=== PATIENT | female | born 1935 | race Caucasian/White ===

== ENCOUNTER 2016-05-01 07:42 | Outpatient (CLI) | payer MEDICARE, OTHER ==
[~2016-05-01] VITALS: Ht 166.4 cm; Wt 75.5 kg
--- NOTE | ~2016-05-01 | HEMODYNAMI ---
PATIENT:TINY HERNANDEZ MEDICAL RECORD: [id number] : 37 LOCATION:[facility] ADMISSION DATE: 05/01/16 Generatedon:05/01/201610:48 Patient name: TINY HERNANDEZ Patient #: [id number] : 1935 Date of study: 05/01/2016 Page: Of Hemodynamic Procedure Report Patient Data Patient Demographics Procedure consent was obtained First Name: TINY Gender: Female Last Name: DAVID : 1935 Middle Initial: KASSANDRA Age: 80 year(s) Patient #: [id number] Race: SSN: [id number] Additional ID: [id number] Contact details [address]: [address] [place] [address] State: [place] City: [place] Zip code: [address] Past Medical History History of disease Date Diagnosis Comments CAD Allergies Allergen Reaction Date Comments Reported Percocet 05/01/2016 Other allergy 05/01/2016 PLAVIX Sulfa drugs 05/01/2016 Codeine 05/01/2016 Other allergy 05/01/2016 NEURONTIN Admission Admission Data Admission Date: 05/01/2016 Admission Time: 7:42 Height (in.): 65.5 BSA: 1.84 (m2) Height (cm.): 166.37 BMI: 27.2 (kg/m2) Weight (lbs.): 166 Weight (kg.): 75.3 Lab Results Lab Result Date: 05/01/2016 Lab Result Time: 0:00 Biochemistry Name Units Result Min Max BUN mg/dl 18 --(---*)-- 7 18 Creatinine mg/dl 1 --(--*-)-- 0.6 1.3 CBC Name Units Result Min Max Hemoglobin g/dl 12.9 -*(----)-- 13.5 17.5 Procedure Procedure Types Cath Procedure Diagnostic Procedure LHC LHC w/Coronaries w/Grafts FFR/IVUS Intra-Coronary IVUS Initial IVUS Additional x2 PCI Procedure Coronary Stent Initial x2 Procedure Description Procedure Date Procedure Date: 05/01/2016 Procedure Start Time: 10:11 Procedure End Time: 10:41 Procedure Staff Name Function Henri Adams MD Performing Physician Belkys Torres RT Scrub Chiquita Murphy RN Nurse Bruce Bhat RT Laborer Cutting Tool Maurice Park RT Monitor Indication Angina Procedure Data Cath Procedure Fluoroscopy Diagnostic fluoroscopy Total fluoroscopy Time: time: 11.3 min 11.3 min Diagnostic fluoroscopy Total fluoroscopy dose: dose: 1196 mGy 1196 mGy Contrast Material Contrast Material Type Amount (ml) Isovue 300 227 Entry Location Entry Primary Successful Side Size Upsize Upsize Entry Closure Succes sful Closure Location (Fr) 1 (Fr) 2 (Fr) Remarks Device Remarks Femoral Right 5 Fr 6 Fr Vascade artery Short Closure System Diagnostic catheters Device Type Used For End Catheter Placement Cordis 5Fr Pigtail LV Angiography Catheter (MP) Cordis 5Fr JL 4.0 Left Coronary Catheter (MP) Angiography Cordis 5Fr 3DRC Catheter SVG Angiography (MP) Procedure Complications No complications Procedure Medications Medication Administration Route Dosage Oxygen NC 2 l/min Heparin Flush Bag added to field 2 bags (1000units/500ml NS) Lidocaine 2% added to field 20 Benadryl I.V. 50 mg Versed I.V. 1 mg Fentanyl I.V. 50 mcg Heparin Bolus I.V. 5000 units Versed I.V. 1 mg Fentanyl I.V. 50 mcg Hemodynamics Rest BSA: 1.84 (m2) HGB: 12.9 (g/dl) O2 Consumption: Estimated: 168.83 (ml/min) O2 Co nsumption indexed: Estimated:91.76 (ml/min/m) Heart Rate: 74 (bpm) Snapshots Pre Cath Intra NCS Post Cath Vital Signs Time Heart Resp SPO2 NIBP (mmHg) Rhythm Pain Sedation Rate (ipm) (%) Status Level (bpm) 9:16:19 65 17 98 117/64(91) NSR 0 (11) 10(A) , No pain 9:20:27 68 17 95 129/71(90) NSR 0 (11) 10(A) , No pain 9:24:39 64 14 94 130/74(98) NSR 0 (11) 10(A) , No pain 9:28:53 61 15 96 122/67(88) NSR 0 (11) 10(A) , No pain 9:33:05 62 16 95 117/66(95) NSR 0 (11) 10(A) , No pain 9:37:17 61 16 96 115/61(86) NSR 0 (11) 10(A) , No pain 9:41:29 61 16 94 116/61(89) NSR 0 (11) 10(A) , No pain 9:45:39 62 15 94 111/63(78) NSR 0 (11) 10(A) , No pain 9:49:49 60 15 95 109/56(80) NSR 0 (11) 10(A) , No pain 9:54:00 60 15 94 106/54(86) NSR 0 (11) 10(A) , No pain 9:58:10 59 15 94 108/55(88) NSR 0 (11) 10(A) , No pain 10:02:20 60 15 94 107/58(80) NSR 0 (11) 10(A) , No pain 10:06:28 59 15 94 99/58(74) NSR 0 (11) 10(A) , No pain 10:10:34 59 15 94 98/56(73) NSR 0 (11) 10(A) , No pain 10:14:38 63 15 94 108/61(79) NSR 0 (11) 9(A) , No pain 10:18:45 63 15 97 125/65(95) NSR 0 (11) 9(A) , No pain 10:23:01 62 14 97 114/61(91) NSR 0 (11) 9(A) , No pain 10:27:11 59 15 96 114/63(82) NSR 0 (11) 9(A) , No pain 10:31:19 62 15 97 131/68(87) NSR 0 (11) 9(A) , No pain 10:35:35 59 14 96 131/64(94) NSR 0 (11) 9(A) , No pain 10:39:47 61 14 97 131/67(112) NSR 0 (11) 9(A) , No pain Medications Time Medication Route Dose Verified Delivered Reason Notes Effectiveness by by 9:15:26 Oxygen NC 2 Henri Chiquita Per physician l/min Bryan Murphy RN 9:15:36 Heparin Flush added 2 Henri Álvarez used for Bag to bags Bryan Adams MD procedure (1000units/500ml field NS) 9:15:42 Lidocaine 2% added 20ml Henri Henir used for to vial Bryan Adams MD procedure field 9:15:49 Benadryl I.V. 50 mg Henri Chiquita Per physician Bryan Murphy RN 10:09:21 Versed I.V. 1 mg Henri Chiquita for sedation Bryan Murphy RN 10:09:29 Fentanyl I.V. 50 Henri Chiquita for sedation mcg Bryan Murphy RN 10:13:06 Fentanyl I.V. 50 Henri Chiquita for sedation mcg Bryan Murphy RN 10:13:58 Versed I.V. 1 mg Henri Chiquita for sedation Bryan Murphy RN 10:18:28 Heparin Bolus I.V. 5000 Henri Khannaca for dose units Bryan Murphy RN anticoagulation verified with dr adams Procedure Log Time Note 8:50:22 Bruce Bhat RT(R) sent for patient. Start room use. 9:01:25 Informed consent obtained and on chart 9:08:58 Diagnostic Cath Status : Elective 9:09:18 Indication : Angina 9:09:33 Time tracking: Regular hours 9:09:38 Plan of Care:Hemodynamics will remain stable., Cardiac rhythm will remain stable., Comfort level will be maintained., Respiratory function will remain adequate., Patient/ family verbilizes understanding of procedure., Procedure tolerated without complication., Recovers from procedure without complications.. 9:09:45 Patient received from Outpatients to CCL 1 Alert and oriented. Tansferred to table in Supine position. 9:09:46 Warm blankets applied, and randi hugger turned on for patient comfort. 9:09:47 Correct patient and procedure confirmed by team. 9:09:47 ECG and BP/O2 sat monitors applied to patient. 9:15:17 Vital chart was started 9:15:26 Oxygen 2 l/min NC was given by Chiquita Murphy RN; Per physician; 9:15:36 Heparin Flush Bag (1000units/500ml NS) 2 bags added to field was given by Henri Adams MD; used for procedure; 9:15:42 Lidocaine 2% 20ml vial added to field was given by Henri Adams MD; used for procedure; 9:15:49 Benadryl 50 mg I.V. was given by Chiquita Murphy RN; Per physician; 9:18:56 Baseline sample Acquired. 9:18:58 Rhythm: sinus rhythm 9:19:00 Full Disclosure recording started 9:21:27 H&P Date Dictated: 04/30/2016 Within 30 days and on chart., H&P Addendum completed by physician on day of procedure. (MUST COMPLETE FOR ALL OUTPATIENTS). 9:21:28 Pre-procedure instructions explained to patient. 9:21:33 Pre-op teaching completed and patient verbalized understanding. 9:21:35 Family in waiting room. 9:21:36 Patient NPO since Midnight. 9:22:00 Patient allergic to Percocet 9:22:21 Patient allergic to Other allergyPLAVIX 9:22:25 Patient allergic to Sulfa drugs 9:22:31 Patient allergic to Codeine 9:22:54 Patient allergic to Other allergyNEURONTIN 9:22:57 Is the patient allergic to Iodine/contrast media? No. 9:23:01 Is patient on blood thinner?Yes 9:23:04 ACC The patient was administered the following blood thiners within the last 24 hours: ACCEffient 9:23:29 Patient diabetic? No. 9:23:31 ----Pre-sedation anethsthesia assessment.---- 9:23:33 Previous problem with sedation/anesthesia? No ? 9:23:34 Snore? No 9:23:36 Sleep apnea? No 9:23:37 Deviated septum? No 9:23:38 Opens mouth fully? Yes 9:23:39 Sticks out tongue? Yes 9:23:41 Airway obstruction? No ? 9:23:46 Dentures? Yes IN TIGHT 9:23:49 Pre procedure: right dorsailis pedis pulse 2+ Normal; easily identifiable; not easily obliterated 9:23:52 Patient pain scale 0/10 ?. 9:24:00 IV patent on arrival in left forearm with 0.9% NaCl at 10ml/hr. 9:24:34 Lab Result : BUN 18 mg/dl 9:24:34 Lab Result : Hemoglobin 12.9 g/dl 9::34 Lab Result : Creatinine 1 mg/dl 9::39 Lab results completed and on chart. 9::42 Right groin area was prepped with chlora-prep and draped in sterile fashion 9::43 Alarms reviewed by R. N. 9:: Sharps counted by scrub and verified by R.N. 9::42 Patient Height : 166.37 cm 9::45 Patient Weight : 75.3 kg 9:27:02 Use device set Femoral Dx 9:27:03 Acist Syringe opened to sterile field. 9:27:04 Bag Decanter opened to sterile field. 9:27:04 Cardinal Cath Pack opened to sterile field. 9:27:04 Terumo 5Fr Avery Sheath opened to sterile field. 9:27:05 St James 260cm J .035 wire opened to sterile field. 9:27:06 Acist Hand Control opened to sterile field. 9:27:06 Acist Manifold opened to sterile field. 9:27:07 Cordis Infinity 5Fr Multipack catheter opened to sterile field. 9:27:08 Tegaderm 4 x 4 opened to sterile field. 9:28:23 Zero performed for pressure channel P1 10:08:49 --------ALL STOP TIME OUT------ 10:08:49 Final Timeout: patient, procedure, and site verified with staff and physician. All members of the team are in agreement. 10:08:51 Right groin site verified by team. 10:09:09 Physical assessment completed. ASA score P 2 - A patient with mild systemic disease as per Henri Adams MD. 10:09:13 Sedation plan: IV Moderate Sedation Versed, Fentanyl 10::21 Versed 1 mg I.V. was given by Chiquita Murphy RN; for sedation; ::29 Fentanyl 50 mcg I.V. was given by Chiquita Murphy RN; for sedation; 10:11:00 Procedure started. 10:11:09 Local anesthetic to right femoral artery with Lidocaine 2% by Henri Adams MD.INITIAL ACCESS ONLY 10:11:16 A 5 Fr sheath was inserted into the Right Femoral artery 10:11:43 A Cordis 5Fr Pigtail Catheter (MP) was advanced over the wire and used for LV Angiography. 10:11:46 LV angiography performed. 10:11:56 LV gram done using VALERIO 10:12:12 Injector settings: Ml/sec: 5, Volume: 15, 10:12:43 EF : 55 % 10:12:44 Catheter removed. 10:12:49 A Cordis 5Fr JL 4.0 Catheter (MP) was advanced over the wire and used for Left Coronary Angiography. 10:13:06 Fentanyl 50 mcg I.V. was given by Chiquita Murphy RN; for sedation; 10:13:24 LCA angiography performed. 10:13:25 Catheter removed. 10:13:40 Terumo 6Fr Avery Sheath opened to sterile field. 10:13:40 Pint Pleaseisper J 300cm 0.014 guide wire opened to sterile field. 10:13:41 Merit BasixCompak Inflation Kit opened to sterile field. 10:13:58 Versed 1 mg I.V. was given by Chiquita Murphy RN; for sedation; 10:15:14 A Cordis 5Fr 3DRC Catheter (MP) was advanced over the wire and used for SVG Angiography. 10:16:01 SVG to LAD angiography performed. 10:16:08 RCA angiography performed. 10:16:58 Catheter removed. 10:17:28 Elm Mott Alpine Eagleye IVUS Catheter opened to sterile field. 10:18:16 Medtronic Launcher 6Fr 3DRC guide catheter opened to sterile field. 10:18:18 Cordis 6FR XBLAD 3.5 SH guide catheter opened to sterile field. 10:18:27 Sheath upsized to a 6 Fr Short. 10:18:28 Heparin Bolus 5000 units I.V. was given by Chiquita Murphy RN; for anticoagulation; dose verified with dr admas 10:18:33 6 Fr 3DRC guide catheter was inserted over the wire 10:18:36 Organically MaidISPER wire advanced. 10:18:40 FFR/IVUS 10:18:40 IVUS catheter advanced over wire. 10:18:42 IVUS pass to RCA lesion performed. 10:18:53 Procedure type changed to Cath procedure, Diagnostic procedure, LHC, LHC w/Coronaries w/Grafts, FFR/IVUS, Intra-Coronary IVUS Initial, IVUS Additional x2, PCI procedure, Coronary Stent Initial x2 10:21:39 IVUS catheter removed over wire. 10:22:17 Wire removed. 10:22:29 6 Fr XBLAD 3.5 SH guide catheter was inserted over the wire 10:23:03 WHISPER wire advanced. 10:23:09 FFR/IVUS 10:23:09 IVUS catheter advanced over wire. 10:23:11 IVUS pass to Circ lesion performed. 10:24:42 IVUS catheter removed over wire. 10:24:45 Wire removed. 10:24:52 WHISPER wire advanced. 10:24:55 FFR/IVUS 10:24:55 IVUS catheter advanced over wire. 10:24:56 IVUS pass to LAD lesion performed. 10:28:18 IVUS catheter removed over wire. 10:28:28 Wire removed. 10:28:36 WHISPER wire advanced. 10:29:36 ACC PCI Site: mCirc has 70% stenosis. 10:29:39 ACC Pre-intervention DIXON Flow is 3. 10:30:30 Inflation Number: 1 A Medtronic Resolute 3.5 X 15 stent was prepped and advanced across the Mid CX. The stent was deployed at 15 DALILA for 0:14 (min:sec). 10:30:44 Inflation number: 2 The stent balloon was then re-inflated across the Mid CX to 17 DALILA for 0:10 (min:sec). 10:32:31 Inflation number: 3 The stent balloon was then re-inflated across the Mid CX to 15 DALILA for 0:08 (min:sec). 10:33:03 Stent catheter was removed intact over wire. 10:33:04 ACC Post-intervention DIXON Flow is 3. 10:33:45 ACC PCI Site: LMCA has 80% stenosis. 10:33:47 ACC Pre-intervention DIXON Flow is 3. 10:35:44 The Medtronic Resolute 3.5 X 9 stent was advanced then removed because of failure to cross lesion 10:35:51 Wire removed. 10:35:54 Guide catheter removed. 10:36:05 Cordis 6FR XBLAD 3.5 guide catheter opened to sterile field. 10:36:12 6 Fr XBLAD 3.5 guide catheter was inserted over the wire 10:36:15 WHISPER wire advanced. 10:37:08 DID NOT GET A GOOD PICTURE WITH A SH CATH. 10:37:19 Inflation Number: 1 A Medtronic Resolute 3.5 X 9 stent was prepped and advanced across the LMCA. The stent was deployed at 17 DALILA for 0:10 (min:sec). 10:37:36 Inflation number: 2 The stent balloon was then re-inflated across the LMCA to 21 DALILA for 0:10 (min:sec). 10:37:57 Contrast amount:Isovue 300 227ml. 10:38:32 Stent catheter was removed intact over wire. 10:38:32 Wire removed. 10:38:33 Guide catheter removed. 10:38:43 Sheath removed intact; hemostasis achieved with Vascade Closure System to the Right Femoral artery. 10:38:47 Procedure ended.(Physican Out) 10:38:59 Fluoroscopy time 11.30 minutes. 10:39:04 Fluoroscopy dose: 1196 mGy 10:39:04 Flurop Dose total: 1196 10:39:05 Sharps counted by scrub and verified by R.N. 10:39:06 Insertion/operative site no bleeding no hematoma. 10:39:14 Post-op/insertion site Right Femoral artery dressed using a 4 x 4 and Tegaderm. 10:39:17 Post right femoral artery:stable 10:39:18 Post Procedure Pulses reassessed and unchanged 10:39:22 Post procedure rhythm: sinus rhythm 10:39:23 Post procedure instruction explained to patient.Patient verbalizes understanding. 10:39:51 Vascade 6/7 Fr Closure Device opened to sterile field. 10:40:48 Procedure and supply charges have been captured, reviewed, submitted and are correct. 10:40:52 Procedure Complication : No complications 10:40:55 Vital chart was stopped 10:40:55 See physician's report for complete and final results. 10:40:57 Report given to Post Procedure Room. 10:41:02 Patient transfered to Post Procedure Room with Stretcher. 10:41:04 Procedure ended. 10:41:04 Full Disclosure recording stopped 10:41:14 End room use (Document Last) Intervention Summary Intervention Notes Time ActionType Lesion and Equipment Action# Pressure Duration Attributes Used 10:30:30 Place stent Mid CX Medtronic 1 15 00:14 Resolute 3.5 X 15 stent 10:30:44 Reinflate Mid CX Medtronic 2 17 00:10 stent Resolute balloon 3.5 X 15 stent 10:32:31 Reinflate Mid CX Medtronic 3 15 00:08 stent Resolute balloon 3.5 X 15 stent 10:35:44 Discard Medtronic Stent Resolute 3.5 X 9 stent 10:37:19 Place stent LMCA Medtronic 1 17 00:10 Resolute 3.5 X 9 stent 10:37:36 Reinflate LMCA Medtronic 2 21 00:10 stent Resolute balloon 3.5 X 9 stent Device Usage Item Name Manufacture Quantity Catalog Hospital Part Current Minima l Lot# / Number Charge Number Stock Stock Serial# Code Acist Acist 1 [id number] [id number] 774036 953320 20 Syringe Medical Systems Inc Bag Microtek 1 2002S 334049 44359 335159 5 Decanter Medical Inc. Cardinal Cardinal 1 [id number] 273080 71413 711477 5 Cath Pack Health Terumo 5Fr Terumo 1 [id number] 139981 781432 676540 [address] [facility] 1 590364 208471 926408 908083 30 260cm J .035 wire Acist Hand Acist 1 02251 215258 562293 615733 5 Control Medical Systems Inc Acist Acist 1 13435 424495 389840 605537 5 Manifold Medical Systems Inc Cordis Cardinal 1 [id number] 668444 34913 782820 30 Infinity Health 5Fr Multipack catheter Tegaderm 4 3M 1 1626W 165811 030987 293447 5 x 4 Cordis 5Fr Cardinal 1 799352 5 Pigtail Health Catheter (MP) Cordis 5Fr Cardinal 1 170758 5 JL 4.0 Health Catheter (MP) Terumo 6Fr Terumo 1 [id number] 546007 210727 390175 40 Avery Sheath [facility] 1 [id number] 910521 865465 764155 5 Whisper J Vascular 300cm 0.014 guide wire Merit Merit 1 [id number] 186898 566428 576044 15 BasixCompak Medical Inflation Kit Cordis 5Fr Cardinal 1 092725 5 3DRC Health Catheter (MP) Darshana Gilliland 1 [id number] 180558 440300 512686 8 Alpine Eagleye IVUS Catheter Medtronic Medtronic 1 [id number] 344571 869958 775838 1 Launcher 6Fr 3DRC guide catheter Cordis 6FR Cardinal 1 [id number] 905525 237447 109389 3 XBLAD 3.5 Health SH guide catheter Medtronic Medtronic 1 [id number] 093542 382945 5 [id number] Resolute 3.5 X 15 stent Medtronic Medtronic 1 [id number] 893232 618283 3 [id number] Resolute 3.5 X 9 stent Cordis 6FR Cardinal 1 [id number] 317093 386585 145706 10 XBLAD 3.5 Health guide catheter Vascade 6/7 Cardiva 1 [id number] 604864 287960 364160 5 Fr Closure Medical, Device Inc. Signature Audit [place] Stage Time Signature Unsigned Intra-Procedure 05/01/2016 Maurice Park 10:48:01 AM RT(R) Signatures Monitor : Maurice Park RT Signature : Date : Time : [place] [id number] [place] [address]
[2016-05-01] MEDS ORDERED: BAYER CHEWABLE81 MG PO (08:32)
[2016-05-01] MEDS ORDERED: COREG6.25 MG PO (08:33)
[2016-05-01] MEDS ORDERED: CRESTOR20 MG PO (08:33)
[2016-05-01] MEDS ORDERED: CYMBALTA60 MG PO (08:33)
[2016-05-01] MEDS ORDERED: CYMBALTA30 MG PO (08:34)
[2016-05-01] MEDS ORDERED: EFFIENT10 MG PO (08:34)
[2016-05-01] MEDS ORDERED: DEXILANT60 MG PO (08:34)
[2016-05-01] MEDS ORDERED: ISOSORBIDE MONO60 M1 PO (08:35)
[2016-05-01] MEDS ORDERED: LINZESS145 MCG PO (08:36)
[2016-05-01] MEDS ORDERED: NITROSTAT0.4 MG SL (08:36)
[2016-05-01] MEDS ORDERED: SYNTHROID75 MCG PO (08:37)
[2016-05-01] MEDS ORDERED: ALTACE10 MG PO (08:37)
[2016-05-01] MEDS ORDERED: RANEXA1000 MG PO (08:37)
[2016-05-01] MEDS ORDERED: VITAMIN B-1000 MCG/M IM (08:38)
[2016-05-01] MEDS ORDERED: VITAMIN D31000 UNIT PO (08:39)
[2016-05-01] MEDS ORDERED: REFRESH TEARS15 ML EACH EYE (08:40)
[2016-05-01 08:42] VITALS: BP 112/55; Ht 166.4 cm; Wt 75.5 kg
[2016-05-01 08:51] LABS: BASOPHILS 0.2 % (0.0-2.0); EOSINOPHILS 0.8 % (0-7); HEMATOCRIT 39.4 % (36.0-48.0); HEMOGLOBIN 12.9 g/dL (12-16); IMMATURE GRANULOCYTES 0.8 % (0-5); LYMPHOCYTES 11.6 % (15-50); MCH 27.7 pg (26.0-34.0); MCHC 32.7 g/dL (31.0-37.0); MCV 84.5 fL (80.0-100.0); MONOCYTES 6.5 % (2-11); NEUTROPHILS 80.1 % (40-80); PLATELET COUNT 201 10x3/uL (130-400); RBC 4.66 10x6/uL (4.00-5.40); RDW 14.6 % (11.5-14.5); WBC 9.9 10x3/uL (4.8-10.8)
[2016-05-01 08:59] LABS: ANION GAP 12.9 mmol/L (8-16); CALCIUM 8.9 mg/dL (8.5-10.1); CARBON DIOXIDE 30.3 mmol/L (21.0-32.0); POTASSIUM - SERUM 4.2 mmol/L (3.5-5.1)
--- NOTE | 2016-05-01 11:05 | NUR ---
VSS HR NSR 64 CHEST PAIN DENIED BP 139/69. 6 FR VASCADE R/GROIN CDI NO BLEEDING NO HEMATOMA NOTED. INSTRUCTED PATIENT TO KEEP HEAD FLAT ON PILLOW WITH RLE STRAIGHT
--- NOTE | 2016-05-01 11:32 | NUR ---
VSS WITH CHEST PAIN DENIED. 6 FR VASCADE R/GROIN CDI NO BLEEDING NO HEAMTOMA NOTED. FAMILY AT SIDE WILL MONITOR
--- NOTE | 2016-05-01 12:00 | NUR ---
1200 6 FR VASCADE R/GROIN CDI NO BLEEDING NO HEMATOMA NOTED. INSTRUCTED PATIENT TO KEEP HEAD FLAT ON PILLOW WITH RLE STRAIGHT
--- NOTE | 2016-05-01 13:00 | NUR ---
1300 VSS WITH NO CHANGE IN ASSESSMENT WILL MONITOR
--- NOTE | 2016-05-01 14:32 | NUR ---
PIV REMOVED FROM LEFT ARM WITH DRESSING APPLIED. PATIENT DENIED CHEST PAIN WITH 6 FR VASCADE R/GROIN CDI NO BLEEDING NO HEMATOMA NOTED. UP TO GET DRESSED FOR DISCHARGE HOME WITH DAUGHTER
--- NOTE | 2016-05-01 16:40 | OP ---
PATIENT NAME: TINY HERNANDEZ MEDICAL RECORD: [id number] :37 LOCATION:D.CAT ADMISSION DATE: SURGEON: JES GRAY MD DATE OF OPERATION: 05/01/2016 PROCEDURES: 1. PTCA stent left main. 2. PTCA stent left circumflex. 3. Intravascular ultrasound RCA, left circumflex and LAD. 4. Left heart catheterization. 5. Selective coronary angiography. 6. Left ventriculogram. INDICATION: Angina, unstable coronary artery disease. PROCEDURE IN DETAIL: After informed consent was obtained and after detailed explanation of risks, benefits as well as alternative therapies, the patient elected to proceed with angiogram and angioplasty. The right femoral area was prepped and draped in normal sterile fashion. Right femoral artery was cannulated via modified Seldinger technique with placement of 6-Tamazight sheath. All catheters exchanged through this sheath. FINDINGS: 1. The left main has a 75% to 80% stenosis at the ostium. Left anterior descending has [id number] irregularities, intravascular ultrasound revealed there is nothing greater than 50%. 2. Left circumflex has a 74% stenosis just after the previously placed stent. The previously placed stent is very poorly opposed. 3. Right coronary has a 71% stenosis confirmed by intravascular ultrasound in the proximal vessel. PERCUTANEOUS TRANSLUMINAL CORONARY ANGIOPLASTY STENT OF THE LEFT CIRCUMFLEX AND LEFT MAIN: Left circumflex was addressed with a 3.5 x 15 mm Resolute stent, the left main with a 3.5 x 9-mm Resolute. Result was 0% residual stenosis. OVERALL IMPRESSION: Successful percutaneous transluminal coronary angioplasty stent of the left main and left circumflex, both going from 75% to 80% initial stenosis to 0% residual. PLAN: For PTCA stent of the RCA in the near future. TRANSINT:[id number] Voice Confirmation ID: [id number] DOCUMENT ID: [id number] JES GRAY MD at 1640 CC: [id number] DICTATION DATE: 05/01/16 1047 FINANCIAL SALES PROFESSIONAL: 05/01/16 1309 DEP CLI 05/01/16 [place] [address]
== END 2016-05-01 14:48 | disposition home or self-care (01) ==
LOC: D.CATH 07:42
PROVIDERS: Internal Medicine Interventional Cardiology
DX: I25.119 Atherosclerotic heart disease of native coronary artery with unspecified angina pectoris (principal); I10 Essential (primary) hypertension; E78.5 Hyperlipidemia, unspecified
CPT/HCPCS: 93458; 92978; 92979 ×2; C9600 ×2

== ENCOUNTER 2016-05-04 07:39 | Outpatient (CLI) | payer MEDICARE, OTHER ==
[~2016-05-04] VITALS: Ht 166.4 cm; Wt 76.8 kg
--- NOTE | ~2016-05-04 | HEMODYNAMI ---
PATIENT:TINY HERNANDEZ MEDICAL RECORD: [id number] : 37 LOCATION:[facility] ADMISSION DATE: 05/04/16 Generatedon:05/04/201612:32 Patient name: TINY HERNANDEZ Patient #: [id number] : 1935 Date of study: 05/04/2016 Page: Of Hemodynamic Procedure Report Patient Data Patient Demographics Procedure consent was obtained First Name: TINY Gender: Female Last Name: DAVID : 1935 Middle Initial: KASSANDRA Age: 80 year(s) Patient #: [id number] Race: SSN: [id number] Additional ID: [id number] Contact details Address: [address] [place] [address] State: [place] City: [place] Zip code: [address] Past Medical History History of disease Date Diagnosis Comments CAD Allergies Allergen Reaction Date Comments Reported Percocet 05/01/2016 Other allergy 05/01/2016 PLAVIX Sulfa drugs 05/01/2016 Codeine 05/01/2016 Other allergy 05/01/2016 NEURONTIN Admission Admission Data Admission Date: 05/04/2016 Admission Time: 7:39 Lab Results Lab Result Date: 05/04/2016 Lab Result Time: 0:00 Biochemistry Name Units Result Min Max BUN mg/dl 17 --(---*)-- 7 18 Creatinine mg/dl 1 --(--*-)-- 0.6 1.3 CBC Name Units Result Min Max Hemoglobin g/dl 11.6 *-(----)-- 13.5 17.5 Procedure Procedure Types Cath Procedure PCI Procedure Coronary Stent Initial Procedure Description Procedure Date Procedure Date: 05/04/2016 Procedure Start Time: 12:17 Procedure End Time: 12:28 Procedure Staff Name Function Henri Adams MD Performing Physician Belkys Torres RT Scrub Chiquita Murphy RN Nurse Maurice Park RT Customer Service Engineer Zohreh Puentes RT Monitor Procedure Data Cath Procedure Fluoroscopy Diagnostic fluoroscopy Total fluoroscopy Time: 1.5 time: 1.5 min min Diagnostic fluoroscopy Total fluoroscopy dose: 864 dose: 864 mGy mGy Contrast Material Contrast Material Type Amount (ml) Isovue 300 32 Entry Location Entry Primary Successful Side Size Upsize Upsize Entry Closure Fortune ccessful Closure Location (Fr) 1 (Fr) 2 (Fr) Remarks Device Remarks Radial Right 6 Fr Mechanical tr artery Short Compression Estimated blood loss: 10 ml Procedure Medications Medication Administration Route Dosage Oxygen NC 2 l/min Heparin Flush Bag added to field 2 bags (1000units/500ml NS) Lidocaine 2% added to field 20 Radial Cocktail added to field 1 syringe (Verapomil 2mg/Nitro 400mcg/Heparin 1500units) Benadryl I.V. 50 mg Versed I.V. 1 mg Fentanyl I.V. 50 mcg Heparin Bolus I.V. 4000 units Versed I.V. 1 mg Fentanyl I.V. 50 mcg Radial Cocktail I.A. 1 syringe (Verapomil 2mg/Nitro 400mcg/Heparin 1500units) Fentanyl I.V. 25 mcg Hemodynamics Rest HGB: 11.6 (g/dl) Heart Rate: 60 (bpm) Snapshots Pre Cath Intra NCS Post Cath Vital Signs Time Heart Resp SPO2 NIBP (mmHg) Rhythm Pain Sedation Rate (ipm) (%) Status Level (bpm) 12:10:23 58 16 98 130/68(88) NSR 0 (11) 10(A) , No pain 12:15:19 64 16 100 134/68(111) NSR 0 (11) 10(A) , No pain 12:19:37 64 16 94 125/64(93) NSR 0 (11) 10(A) , No pain 12:23:53 69 16 95 105/54(78) NSR 0 (11) 9(A) , No pain 12:28:51 68 15 97 129/68(92) NSR 0 (11) 9(A) , No pain Medications Time Medication Route Dose Verified Delivered Reason Note s Effectiveness by by 12:09:23 Oxygen NC 2 l/min Henri Porras Per physician Bryan Murphy RN 12:09:30 Heparin Flush added 2 bags Henri Álvarez used for Bag to Bryan Adams MD procedure (1000units/500ml field NS) 12:09:36 Lidocaine 2% added 20ml Henri Henri used for to vial Bryan Adams MD procedure field 12:09:42 Radial Cocktail added 1 Henri Álvarez used for (Verapomil to syringe Bryan Adams MD procedure 2mg/Nitro field 400mcg/Heparin 1500units) 12:09:50 Benadryl I.V. 50 mg Henri Chiquita Per physician Bryan Murphy RN 12:14:53 Versed I.V. 1 mg Henri Chiquita for sedation Bryan Murphy RN 12:14:57 Fentanyl I.V. 50 mcg Henri Chiquita for sedation Bryan Murphy RN 12:17:28 Versed I.V. 1 mg Henri Chiquita for sedation Bryan Murphy RN 12:17:36 Fentanyl I.V. 50 mcg Henri Chiquita for sedation Bryan Murphy RN 12:17:42 Radial Cocktail I.A. 1 Henri Henri for (Verapomil syringe Bryan Adams MD vasodilation 2mg/Nitro 400mcg/Heparin 1500units) 12:20:01 Heparin Bolus I.V. 4000 Henri Chiquita for dose units Bryan Murphy RN anticoagulation verified wt dr adams 12:20:56 Fentanyl I.V. 25 mcg Henri Chiquita for sedation Bryan Murphy RN Procedure Log Time Note 11:45:57 Maurice Fortuneit RT(R) sent for patient. Start room use. 11:56:52 ACC Patient presents with Stable Angina CCS Anginal Class 2--Slight limitation of ordinary activity. 11:56:54 Diagnostic Cath status Elective 11:57:03 Time tracking: Regular hours 11:57:08 Plan of Care:Hemodynamics will remain stable., Cardiac rhythm will remain stable., Comfort level will be maintained., Respiratory function will remain adequate., Patient/ family verbilizes understanding of procedure., Procedure tolerated without complication., Recovers from procedure without complications.. 11:57:40 Warm blankets applied, and randi hugger turned on for patient comfort. 11:57:40 Correct patient and procedure confirmed by team. 11:57:42 Signed procedure consent form obtained from patient. 11:59:42 ECG and BP/O2 sat monitors applied to patient. 12:09:09 Vital chart was started 12:09:10 Baseline sample Acquired. 12::13 Rhythm: sinus rhythm 12::14 Full Disclosure recording started 12:: Oxygen 2 l/min NC was given by Chiquita Murphy RN; Per physician; 12::25 H&P Date Dictated: 05/04/2016 Within 30 days and on chart., H&P Addendum completed by physician on day of procedure. (MUST COMPLETE FOR ALL OUTPATIENTS). 12::26 Pre-procedure instructions explained to patient. 12:: Pre-op teaching completed and patient verbalized understanding. 12:09:29 Family in patients room. 12:09:30 Heparin Flush Bag (1000units/500ml NS) 2 bags added to field was given by Henri Adams MD; used for procedure; 12:09:32 Patient NPO since Midnight. 12:09:36 Lidocaine 2% 20ml vial added to field was given by Henri Adams MD; used for procedure; 12:09:42 Radial Cocktail (Verapomil 2mg/Nitro 400mcg/Heparin 1500units) 1 syringe added to field was given by Henri Adams MD; used for procedure; 12:09:44 Is the patient allergic to Iodine/contrast media? No. 12:09:47 Is patient on blood thinner?Yes 12:09:50 Benadryl 50 mg I.V. was given by Chiquita Murphy RN; Per physician; 12:09:53 ACC The patient was administered the following blood thiners within the last 24 hours: ACCAspirin, ACCEffient 12:09:55 Patient diabetic? No. 12:09:56 ----Pre-sedation anethsthesia assessment.---- 12:09:58 Previous problem with sedation/anesthesia? No ? 12:10:00 Snore? No 12:10:01 Sleep apnea? No 12:10:02 Deviated septum? No 12:10:03 Opens mouth fully? Yes 12:10:04 Sticks out tongue? Yes 12:10:07 Airway obstruction? No ? 12:10:10 Dentures? Yes in tight 12:10:14 Pre procedure: right dorsailis pedis pulse 1+ Palpable, but thready & weak; easily obliterated 12:10:17 Modified Indra's test Ulnar < 7 seconds 12:10:38 Patient pain scale 0/10 ?. 12:10:44 IV patent on arrival in left hand with 0.9% NaCl at 10ml/hr. 12:12:36 Lab Result : BUN 17 mg/dl 12:12:36 Lab Result : Hemoglobin 11.6 g/dl 12:12:36 Lab Result : Creatinine 1 mg/dl 12:12:39 Lab results completed and on chart. 12:12:44 Right Radial & Right Groin area was prepped with chlora-prep and draped in sterile fashion 12:12:44 Alarms reviewed by R. N. 12:12:45 Sharps counted by scrub and verified by R.N. 12:12:47 --------ALL STOP TIME OUT------ 12:12:47 Final Timeout: patient, procedure, and site verified with staff and physician. All members of the team are in agreement. 12:12:48 Right Radial & Right Groin site verified by team. 12:12:51 Physical assessment completed. ASA score P 2 - A patient with mild systemic disease as per Henri Adams MD. 12:12:54 Sedation plan: IV Moderate Sedation Versed, Fentanyl 12:13:04 Use device set Radial PCI 12:13:05 Acist Syringe opened to sterile field. 12:13:06 Acist Hand Control opened to sterile field. 12:13:06 Bag Decanter opened to sterile field. 12:13:06 Cardinal Cath Pack opened to sterile field. 12:13:07 Merit BasixCompak Inflation Kit opened to sterile field. 12:13:07 Terumo 6Fr Slender Glidesheath opened to sterile field. 12:13:07 [facility] 260cm Straight .035 wire opened to sterile field. 12:13:08 Acist Manifold opened to sterile field. 12:13:10 Tegaderm 4 x 4 opened to sterile field. 12:14:53 Versed 1 mg I.V. was given by Chiquita Murphy RN; for sedation; 12:14:57 Fentanyl 50 mcg I.V. was given by Chiquita Murphy RN; for sedation; 12:17:28 Versed 1 mg I.V. was given by Chiquita Murphy RN; for sedation; 12:17:36 Fentanyl 50 mcg I.V. was given by Chiquita Murphy RN; for sedation; 12:17:42 Radial Cocktail (Verapomil 2mg/Nitro 400mcg/Heparin 1500units) 1 syringe I.A. was given by Henri Adams MD; for vasodilation; 12:17:51 Procedure started. 12:17:59 Local anesthetic to right radial artery with Lidocaine 2% by Henri Adams MD.INITIAL ACCESS ONLY 12:18:10 Zero performed for pressure channel P1 12:20:01 Heparin Bolus 4000 units I.V. was given by Chiquita Murphy RN; for anticoagulation; dose verified wtih dr adams 12:20:44 A 6 Fr Short sheath was inserted into the Right Radial artery 12:20:56 Fentanyl 25 mcg I.V. was given by Chiquita Murphy RN; for sedation; 12:21:22 Medtronic Launcher 6Fr AR 2.0 guide catheter opened to sterile field. 12:21:29 j wire advanced. 12:21:41 Monroy Whisper J 300cm 0.014 guide wire opened to sterile field. 12:22:26 ACC PCI Site: mRCA has 71% stenosis. 12:22:34 6 Fr ar2 guide catheter was inserted over the wire 12:22:39 wHISPER wire advanced. 12:22:40 Wire advanced across lesion. 12:23:25 Inflation Number: 1 A Medtronic Resolute 3.5 X 15 stent was prepped and advanced across the Mid RCA. The stent was deployed at 17 DALILA for 0:10 (min:sec). 12:24:20 ACC Post-intervention DIXON Flow is 3. 12:24:22 Wire removed. 12:24:22 Guide catheter removed. 12:24:36 Sheath removed intact; hemostasis achieved with Mechanical Compression to the Right Radial artery. 12:24:38 Procedure ended.(Physican Out) 12:25:05 Fluoroscopy time 01.50 minutes. 12:25:14 Flurop Dose total: 864 12:25:14 Fluoroscopy dose: 864 mGy 12:25:19 Contrast amount:Isovue 300 32ml. 12:25:20 Sharps counted by scrub and verified by R.N. 12:25:26 TR band inflated with 10cc of air. 12:25:29 Insertion/operative site no bleeding no hematoma. 12:25:39 Post right radial artery:stable 12:26:31 Terumo TR Band Standard opened to sterile field. 12:26:34 Post Procedure Pulses reassessed and unchanged 12::44 Post-procedure physical assessment completed. ASA score P 2 - A patient with mild systemic disease as per Henri Adams MD. 12:26:49 Post procedure rhythm: unchanged. 12::52 Estimated blood loss: 10 ml 12::54 Post procedure instruction explained to patient.Patient verbalizes understanding. 12:27:02 Procedure and supply charges have been captured, reviewed, submitted and are correct. 12:28:03 Vital chart was stopped 12::03 See physician's report for complete and final results. 12::06 Report given to Post Procedure Room. 12:28:10 Procedure ended. 12:28:10 Full Disclosure recording stopped 12:28:35 ACC-PCI Only Patient was given prescriptions, or instructed by Henri Adams MD to start/continue the following medications upon discharge: Effient 12:28:38 End room use (Document Last) Intervention Summary Intervention Notes Time ActionType Lesion and Equipment Action# Pressure Duration Attributes Used 12:23:25 Place stent Mid RCA Medtronic 1 17 00:10 Resolute 3.5 X 15 stent Device Usage Item Name Manufacture Quantity Catalog Hospital Part Current Minimal Lot# / Number Charge Number Stock Stock Serial# Code Acist Acist 1 64194 [id number] 529777 061228 20 Syringe Medical Systems Inc Acist Hand Acist 1 83535 691811 162822 041938 5 Control Medical [employer] Inc Bag Microtek 1 2002S 836861 02443 902153 5 Decanter [employer] Inc. Cardinal Cardinal 1 [id number] 207466 22278 634547 5 AgileMD [facility] 1 [id number] 173764 920463 276274 15 BasixCompaZhijiang [employer] Medical Inflation Kit Terumo 6Fr Terumo 1 [id number] 287674 140358 080451 [address] [facility] 1 [id number] 282614 252783 487326 1 260cm Straight .035 wire Acist Acist 1 96738 270858 211246 130181 5 Manifold [employer] Inc Tegaderm 4 3M 1 1626W 574837 179976 968578 5 x 4 Medtronic Medtronic 1 [id number] 653026 45703 344413 1 Launcher 6Fr AR 2.0 guide catheter Monroy Monroy 1 [id number] 595179 682568 232939 5 Whisper J Vascular 300cm 0.014 guide wire Medtronic Medtronic 1 [id number] 896778 931017 5 [id number] Resolute 3.5 X 15 stent Terumo TR Terumo 1 [id number] 334209 546307 480998 40 Band Standard Signature Audit [place] Time Signature Unsigned Intra-Procedure 05/04/2016 Zohreh Puentes 12:31:58 PM RT(R) Signatures Monitor : Zohreh Puentes Signature : RT Date : Time : [place] [id number] [place] [address]
[~2016-05-04 07:39] MED LIST: ALTACE10 MG PO; BAYER CHEWABLE81 MG PO; COREG6.25 MG PO; CRESTOR20 MG PO; CYMBALTA30 MG PO; CYMBALTA60 MG PO; DEXILANT60 MG PO; EFFIENT10 MG PO; ISOSORBIDE MONO60 M1 PO; LINZESS145 MCG PO; NITROSTAT0.4 MG SL; RANEXA1000 MG PO; REFRESH TEARS15 ML EACH EYE; SYNTHROID75 MCG PO; VITAMIN B-1000 MCG/M IM; VITAMIN D31000 UNIT PO
[2016-05-04 08:30] VITALS: BP 102/49; Ht 166.4 cm; Wt 76.8 kg
[2016-05-04 09:51] LABS: BASOPHILS 0.2 % (0.0-2.0); EOSINOPHILS 2.2 % (0-7); HEMATOCRIT 35.8 % (36.0-48.0); HEMOGLOBIN 11.6 g/dL (12-16); IMMATURE GRANULOCYTES 0.9 % (0-5); LYMPHOCYTES 17.9 % (15-50); MCH 27.2 pg (26.0-34.0); MCHC 32.4 g/dL (31.0-37.0); MCV 83.8 fL (80.0-100.0); MEAN PLATELET VOLUME 9.7 fL (7.4-10.4); MONOCYTES 10.4 % (2-11); NEUTROPHILS 68.4 % (40-80); PLATELET COUNT 163 10x3/uL (130-400); RBC 4.27 10x6/uL (4.00-5.40); RDW 14.5 % (11.5-14.5); WBC 8.2 10x3/uL (4.8-10.8)
[2016-05-04 09:56] LABS: CALCIUM 8.6 mg/dL (8.5-10.1); CARBON DIOXIDE 29.2 mmol/L (21.0-32.0); POTASSIUM - SERUM 4.2 mmol/L (3.5-5.1)
--- NOTE | 2016-05-04 13:06 | NUR ---
RESTING QUIETLY WITH EYES CLOSED TR BAND TO R/WRIST CDI NO BLEEDING NO HEMATOMA NOTED. VSS WITH FAMILY AT SIDE WILL MONITOR
--- NOTE | 2016-05-04 13:29 | NUR ---
RESTING QUIETLY WITH EYES CLOSED RESPIRATIONS EVEN AND UNLABORED. VSS TR BAND TO R/WRIST CDI NO BLEEDING NO HEMATOMA NOTED FAMILY AT SIDE
--- NOTE | 2016-05-04 15:34 | NUR ---
AMBULATED TO RESTROOM TO VOID.
--- NOTE | 2016-05-04 15:50 | NUR ---
2CC OF AIR REMOVED FROM TR BAND.
--- NOTE | 2016-05-04 16:06 | NUR ---
LEFT ARM IV D/C'D WITH CATHETER INTACT. DISCHARGE INSTRUCTIONS GIVEN. PT AND FAMILY MEMBER VERBALIZED UNDERSTANDING.
--- NOTE | 2016-05-04 16:11 | NUR ---
UP TO SIDE OF BED TO GET DRESSED. 2CC OF AIR REMOVED FROM TR BAND.
--- NOTE | 2016-05-04 16:38 | NUR ---
DISCHARGE INSTRUCTIONS GONE OVER WITH PATIENT AND FAMILY LEFT VIA WC TO [place] FOR FAMILY TO DRIVE HOME
--- NOTE | 2016-05-11 14:16 | HP ---
PATIENT: TINY JETT MEDICAL RECORD: [id number] ACCOUNT: [id number] LOCATION:[facility] : 37 ADMISSION DATE: 05/04/16 HISTORY AND PHYSICAL EXAMINATION ADMITTING DIAGNOSES: 1. Angina. 2. Coronary artery disease. 3. Recent percutaneous transluminal coronary angioplasty stent of the left main, left circumflex with concomitant disease of the right coronary artery. 4. Hypertension. 5. Hyperlipidemia. HISTORY OF PRESENT ILLNESS: Mrs. Jett presents with anginal symptomatology, found to have significant disease of the left main, left circumflex and RCA, underwent successful PTCA stent of the left main and left circumflex last week. She is now brought back for PTCA stent of the RCA. PHYSICAL EXAMINATION: GENERAL APPEARANCE: Well-nourished, well-developed, appears stated age. Level of distress, comfortable. PSYCHIATRIC: Mental status, alert, normal affect. Orientation, oriented to time, place and person. EYES: Lids and conjunctiva, noninjected. No discharge, no pallor. ENT: Lips, teeth, gums, normal dentition. Oropharynx, no cyanosis, no pallor. NECK: Carotid arteries, bilateral normal upstroke, no bruits, no thrills. JUGULAR VEINS: No jugular venous pressure or distention. CERVICAL LYMPH NODES: Nontender, nonenlarged. THYROID: Not enlarged. Nontender. No nodules. LUNGS: Respiratory effort, unlabored. CHEST: Normal curvature. No thoracic deformity. No chest wall tenderness. Percussion, resonant. Auscultation, clear. No wheezes, no rales, no rhonchi. CARDIOVASCULAR: Precordial exam, nondisplaced. No heaves or pericardial thrills. Rate and rhythm, regular. Heart sounds, normal S1, normal S2. No S3, no gallop, no rub. Systolic murmur, not heard. Diastolic murmur, not heard. EXTREMITIES: No cyanosis, no edema. Peripheral pulses, full and equal in all extremities, except as noted. No bruits appreciated. ABDOMEN: Soft, nondistended. Normal aorta. No bruit. Nontender. No masses. Liver, nontender, no hepatomegaly. Spleen, nontender, no splenomegaly. MUSCULOSKELETAL: No joint tenderness. No joint swelling. No erythema. NEUROLOGICAL: Normal gait, normal strength, normal tone. SKIN: Warm and dry. REVIEW OF SYSTEMS: The patient reports easy bruising but reports no swollen glands. The patient reports no fever, no night sweats, no significant weight gain, no significant weight loss. No significant exercise tolerance. The patient reports no dry eyes, no irritation, no vision change. Patient reports no difficulty hearing and no ear pain. Patient reports no frequent nose bleeds or nose and sinus problems. Patient reports on arm pain on exertion. No shortness of breath while lying down. No history of heart murmur. Patient reports no cough, no wheezing or coughing up blood. Patient reports no abdominal pain, no vomiting. Normal appetite. No diarrhea and not vomiting blood. No nausea and no constipation. Patient reports no incontinence. No difficulty urinating. No hematuria. No increased frequency. Patient reports no muscle aches. No weakness, no arthralgias, no back pain. No swelling of the HISTORY AND PHYSICAL [id number] TINY JETT extremities. Patient reports no abnormal mole, no jaundice, no rashes. Reports no loss of consciousness. No weakness and no numbness. No seizures, dizziness, or headaches. The patient reports no depression, no sleep disturbance, feeling safe in a relationship and no alcohol abuse. Patient reports on fatigue. Reports no runny nose or sinus pressure. No itching, no hives, and no frequent sneezing. OVERALL IMPRESSION: Anginal symptomatology with significant disease of the right coronary artery. We will proceed with percutaneous transluminal coronary angioplasty stent of the right coronary artery. TRANSINT:[id number] Voice Confirmation ID: [id number] DOCUMENT ID: [id number] JES GRAY MD at 1416 CC: [id number] DICTATION DATE: 05/04/16 1122 BARTENDER SERVER: 05/04/16 1134 DEP CLI 05/04/16 [facility] [address] [place] [address]
--- NOTE | 2016-05-11 14:16 | OP ---
PATIENT NAME: TINY HERNANDEZ MEDICAL RECORD: [id number] :37 LOCATION:D.CAT ADMISSION DATE: SURGEON: JES GRAY MD DATE OF OPERATION: 05/04/2016 PROCEDURES: 1. PTCA stent, RCA. 2. Selective coronary angiography. INDICATION: Angina and coronary artery disease. PROCEDURE IN DETAIL: After informed consent was obtained and after a detailed explanation of risks, benefits as well as alternative therapies, the patient elected to proceed with angiogram and angioplasty. The right radial area was prepped and draped in normal sterile fashion. The right radial artery was cannulated via modified Seldinger technique with placement of 6-Kyrgyz sheath. All catheters exchanged through this sheath. FINDINGS: The right coronary has a 71% stenosis confirmed by intravascular ultrasound on cardiac catheterization last week. This was addressed with a 3.5 x 15 mm Resolute stent. Result was 0% residual stenosis. OVERALL IMPRESSION: Successful percutaneous transluminal coronary angioplasty stent of the right coronary artery going from 71% initial stenosis to 0% residual. TRANSINT:[id number] Voice Confirmation ID: [id number] DOCUMENT ID: [id number] JES GRAY MD at 1416 CC: [id number] DICTATION DATE: 05/04/16 1228 CHUTE BOSS: 05/04/16 1252 DEP CLI 05/04/[address] [address]
== END 2016-05-04 16:45 | disposition home or self-care (01) ==
LOC: D.CATH 07:39
PROVIDERS: Internal Medicine Interventional Cardiology
DX: I25.119 Atherosclerotic heart disease of native coronary artery with unspecified angina pectoris (principal); E78.5 Hyperlipidemia, unspecified; Z95.5 Presence of coronary angioplasty implant and graft; I10 Essential (primary) hypertension